=== PATIENT | female | born 1975 | race American Indian/Alaskan Native ===

== ENCOUNTER 2018-03-21 12:55 | Emergency (ER) | payer MEDICAID ==
[2018-03-21 13:07] VITALS: BP 113/80
--- NOTE | 2018-03-21 15:35 | Emergency Department Report ---
ED General Adult HPI - General Chief complaint: Extremity Injury, Lower Stated complaint: LT FOOT PAIN Time Seen by Provider: 03/21/18 14:57 Source: patient Mode of arrival: Ambulatory Limitations: No Limitations - History of Present Illness Initial comments: This is a 42-year-old female who presents with left foot pain, bladder palpitations, and sharp abdominal pain. She reports pain to the left foot from immediate fluid to heal that is sharp pain. She reports pain is worse with movement or standing. Patient states that he feels as if something is stuck on the bottom of her heel and she can't move it. Patient states that after leaving in [employer] grocery store she's had severe pain and unable to get out of car. She took hydrocodone by mouth last night with some improvement in his symptoms. Patient states that she walked more today pain increased. She is also complaining of sharp dull pain to bilateral upper abdomen and floaters in heart. Patient states [facility] and nonradiating. No more she sits here and await. It increases. Patient admits to past medical history of diabetes type 2 and hypertension. Patient denies nausea or vomiting, fever, chest pain, shortness of breath, diarrhea or constipation. -: Last night Location: chest, lower extremity (left foot) Radiation: non-radiation Severity scale (0 -10): 8 Quality: sharp, dull Consistency: intermittent Improves with: none Worsens with: movement Associated Symptoms: denies other symptoms Treatments Prior to Arrival: NSAID, other (prescribed pain medications) - Related Data Previous Rx's Medication Instructions Recorded Last Taken Type Clindamycin [Clindamycin CAP] 300 mg PO Q8H #21 cap 03/21/18 Unknown Rx Allergies Allergy/AdvReac Type Severity Reaction Status Date / Time lisinopril Allergy Angioedema Verified 03/21/18 13:03 ED Review of Systems ROS: Stated complaint: LT FOOT PAIN Other details as noted in HPI Constitutional: denies: chills, fever Respiratory: denies: cough, shortness of breath, wheezing Cardiovascular: palpitations (flutter palpitations). denies: chest pain, edema , syncope Endocrine: no symptoms reported Gastrointestinal: abdominal pain (right upper quadrant). denies: nausea, diarrhea Genitourinary: denies: urgency, dysuria, discharge Musculoskeletal: joint swelling (left foot), arthralgia (left foot pain and swelling). denies: back pain Skin: denies: rash, lesions Neurological: denies: headache, weakness, paresthesias ED Past Medical Hx - Past Medical History Previous Medical History?: Yes Hx Hypertension: Yes Hx Diabetes: Yes - Surgical History Past Surgical History?: Yes Additional Surgical History: partial hysterectomy. thyroidectomy. gastric sleeve. left ovary removed - Social History Smoking Status: Never Smoker Substance Use Type: None - Medications Home Medications: Home Medications Medication Instructions Recorded Confirmed Last Taken Type Clindamycin [Clindamycin CAP] 300 mg PO Q8H #21 cap 03/21/18 Unknown Rx ED Physical Exam - General Limitations: No Limitations General appearance: alert, in no apparent distress, obese - Respiratory Respiratory exam: Present: normal lung sounds bilaterally. Absent: respiratory distress - Cardiovascular Cardiovascular Exam: Present: regular rate, normal rhythm. Absent: systolic murmur, diastolic murmur, rubs, gallop - GI/Abdominal GI/Abdominal exam: Present: soft, normal bowel sounds, other (obese abdomen). Absent: distended, tenderness, guarding, rebound, rigid, organomegaly, mass - Expanded Lower Extremity Exam Left Hip exam: Present: normal inspection, full ROM Upper Leg exam: Present: normal inspection, full ROM Knee exam: Present: normal inspection, full ROM Lower Leg exam: Present: normal inspection, full ROM Ankle exam: Present: normal inspection, full ROM Foot/Toe exam: Present: full ROM, tenderness, swelling (calcaneal), calcaneal tenderness. Absent: abrasion, laceration, ecchymosis, deformity, crepidus, dislocation, erythema, amputation, puncture wound, foreign body, tenderness at base of 5th metatarsal, nail avulsion, subungual hematoma Neuro vascular tendon exam: Present: no vascular compromise Gait: Positive: observed and limited by pain - Neurological Exam Neurological exam: Present: alert, oriented X3 - Psychiatric Psychiatric exam: Present: normal affect, normal mood - Skin Skin exam: Present: warm, dry, intact, normal color. Absent: rash ED Course Vital Signs 03/21/18 13:03 Temperature 98.6 F Pulse Rate 63 Respiratory 18 Rate Blood Pressure 113/80 O2 Sat by Pulse 96 Oximetry ED Medical Decision Making - Lab Data Result diagrams: 03/21/18 17:00 10/06/18 17:00 Lab Results 03/21/18 03/21/18 Range/Units 17:00 17:00 WBC 9.5 (4.5-11.0) K/mm3 RBC 4.15 (3.65-5.03) M/mm3 Hgb 13.0 (10.1-14.3) gm/dl Hct 38.7 (30.3-42.9) % MCV 93 (79-97) fl MCH 31 (28-32) pg MCHC 34 (30-34) % RDW 14.0 (13.2-15.2) % Plt Count 316 (140-440) K/mm3 Lymph % (Auto) 25.3 (13.4-35.0) % [place] % (Auto) 7.8 H (0.0-7.3) % Eos % (Auto) 1.1 (0.0-4.3) % Baso % (Auto) 1.1 (0.0-1.8) % Lymph # 2.4 (1.2-5.4) K/mm3 [place] # 0.7 (0.0-0.8) K/mm3 Eos # 0.1 (0.0-0.4) K/mm3 Baso # 0.1 (0.0-0.1) K/mm3 Seg Neutrophils % 64.7 (40.0-70.0) % Seg Neutrophils # 6.2 (1.8-7.7) K/mm3 Sodium 145 (137-145) mmol/L Potassium 4.0 (3.6-5.0) mmol/L Chloride 101.4 (98-107) mmol/L Carbon Dioxide 30 (22-30) mmol/L Anion Gap 18 mmol/L BUN 25 H (7-17) mg/dL Creatinine 1.3 H (0.7-1.2) mg/dL Estimated GFR 54 ml/min BUN/Creatinine Ratio 19 % Glucose 66 (65-100) mg/dL Calcium 9.1 (8.4-10.2) mg/dL Total Bilirubin 0.30 (0.1-1.2) mg/dL AST 34 (5-40) units/L ALT 38 (7-56) units/L Alkaline Phosphatase 53 (35-129) units/L NT-Pro-B Natriuret Pep 25.36 (0-450) pg/mL Total Protein 8.1 (6.3-8.2) g/dL Albumin 4.4 (3.9-5) g/dL Albumin/Globulin Ratio 1.2 % Lipase 25 (13-60) units/L - Radiology Data Radiology results: report reviewed Left foot x-ray impression: Possible soft tissue swelling. Chest PA and lateral compression: No acute cardiopulmonary findings. - Medical Decision Making Patient was examined by me. Vitals are normal. Patient is nontoxic appearance and in no acute distress. POC glucose 41. Patient given orange juice and carbs. EKG obtained and interpreted by attending normal sinus rhythm. Obtained labs and x-ray of left foot and shows. Slight elevation of BUN and creatinine. All of the labs are unremarkable. Left foot x-ray impression: Possible soft tissue swelling. Chest PA and lateral compression: No acute cardiopulmonary findings. Repeat POC glucose 90. Start clindamycin for cellulitis of left foot. Plan discussed with patient to discharge home and treat outpatient. Patient has follow-up appointment next week with personal cap coverer. Patient discharged home in stable condition. Follow up with PCP in 2-3 days. Critical care attestation.: If time is entered above; I have spent that time in minutes in the direct care of this critically ill patient, excluding procedure time. ED Disposition Clinical Impression: Cellulitis of foot, left, Left foot pain, Heart palpitations, Abdominal cramping, Hypoglycemia Disposition: - TO HOME OR SELFCARE Is pt being admited?: No Does the pt Need Aspirin: No Condition: Stable Instructions: Cellulitis (ED), Palpitations (ED), Diabetic Hypoglycemia (ED) Additional Instructions: Never discontinue insulin and metformin without discussion with doctor. Low blood sugar is often accompanied by symptoms such as tachycardia, sweating, shakiness, intense hunger, or confusion, and must be dealt with promptly by eating a carbohydrate such as apple or drink juice. After self-treatment, blood sugar should be checked if possible. Return to ER or f/u with ER promptly is blood glucose drops below 70 or greater than 150 so that therapy may be adjusted. Eat a carbohydrate snack prior to exercise if blood glucose is less than 100. Follow up with Primary Care Provider in 24-72 days. Follow-up with podiatry on scheduled appointment next week. Prescriptions: Clindamycin [Clindamycin CAP] 300 mg PO Q8H #21 cap Referrals: [facility] [Provider Group] - 3-5 Days [facility] [Provider Group] - 3-5 Days [facility] [Provider Group] - 3-5 Days Time of Disposition: 18:26 Print Language: MOZAMBICAN
[2018-03-21 17:11] LABS: Basophils # (Auto) 0.1 K/mm3 (0.0-0.1); Basophils % (Auto) 1.1 % (0.0-1.8); Eosinophils # (Auto) 0.1 K/mm3 (0.0-0.4); Eosinophils % (Auto) 1.1 % (0.0-4.3); Hematocrit 38.7 % (30.3-42.9); Lymphocytes # (Auto) 2.4 K/mm3 (1.2-5.4); Lymphocytes % (Auto) 25.3 % (13.4-35.0); Mean Corpuscular HGB Conc 34 % (30-34); Mean Corpuscular Hemoglobin 31 pg (28-32); Mean Corpuscular Volume 93 fl (79-97); Monocytes # (Auto) 0.7 K/mm3 (0.0-0.8); Monocytes % (Auto) 7.8 % (0.0-7.3); Platelet Count 316 K/mm3 (140-440); Red Blood Count 4.15 M/mm3 (3.65-5.03)
--- NOTE | 2018-03-21 17:32 | XRay Report ---
FINAL REPORT PROCEDURE: Chest. TECHNIQUE: PA and lateral views. HISTORY: Chest pain. COMPARISON: No prior studies are available for comparison. FINDINGS: The heart and mediastinum appear normal. The lungs are clear and well expanded. There are no pleural effusions. The soft tissues and regional skeleton are unremarkable. IMPRESSION: Normal study.
[2018-03-21 17:33] LABS: Albumin 4.4 g/dL (3.9-5); Calcium 9.1 mg/dL (8.4-10.2)
--- NOTE | 2018-03-21 17:51 | XRay Report ---
FINAL REPORT PROCEDURE: Left foot. TECHNIQUE: AP and lateral views. HISTORY: Left foot pain and swelling. COMPARISON: No prior studies are available for comparison. FINDINGS: The bones appear intact without fracture or dislocation. The joint spaces appear normal. There may be some soft tissue swelling on the dorsum of the foot. IMPRESSION: Possible soft tissue swelling.
== END 2018-03-21 18:49 | disposition home or self-care (01) ==
LOC: ED 12:55
DX: L03.116 Cellulitis of left lower limb (principal); R10.11 Right upper quadrant pain; R00.2 Palpitations; E11.649 Type 2 diabetes mellitus with hypoglycemia without coma; I10 Essential (primary) hypertension; Z90.710 Acquired absence of both cervix and uterus; E89.0 Postprocedural hypothyroidism; Z88.6 Allergy status to analgesic agent
CPT/HCPCS: 36415; 71046; 80053; 82962; 83690; 83880; 85025; 93005; 93010

== ENCOUNTER 2020-02-23 16:08 | Outpatient (CLI) | payer OTHER ==
--- NOTE | 2020-02-24 08:35 | Mammography Report ---
DIGITAL SCREENING MAMMOGRAM WITH CAD, 02/23/2020 INDICATION: Routine screening mammography. TECHNIQUE: Digital bilateral 2D mammography was obtained in the craniocaudal and mediolateral obliq ue projections. This examination was interpreted with the benefit of Computer-Aided Detection analysi s. COMPARISON: 06/17/2018 FINDINGS: Breast Density: The breasts are heterogeneously dense, which may obscure small masses. There is no evidence of dominant mass, suspicious calcifications or architectural distortion in eithe r breast. No interval change. IMPRESSION: No evidence of malignancy. Follow up recommendation: Routine yearly BI-RADS Category 1: Negative. A "normal" or negative report should not discourage follow up or biopsy of a clinically significant f inding. A written summary of these findings will be mailed to the patient. The patient will be entered into a mammography reporting system which will generate a reminder letter for the patient's next appointmen t at the appropriate interval. The [employer] recommends yearly mammograms starting at age 40 and continuing as l reinaldo as a woman is in good health. Breast MRI is recommended for women with an approximate 20-25% or greater lifetime risk of breast cancer, including women with a strong family history of breast or ova koki cancer or who have been treated for Hodgkin's disease. Signer Name: Tonie Amaya MD Signed: 02/24/2020 8:31 AM Workstation Name: [id number]
== END 2020-02-23 16:09 | disposition home or self-care (01) ==
LOC: SPVWC 16:08
PROVIDERS: ATTEND Internal Medicine
DX: Z12.31 Encounter for screening mammogram for malignant neoplasm of breast (principal)
CPT/HCPCS: 77067